=== PATIENT | female | born 1985 | race Caucasian/White ===

== ENCOUNTER → 2021-03-17 | Outpatient (CLI) | payer BC ==
--- NOTE | 2021-03-17 18:28 | XR ---
EXAMINATION TYPE: XR chest 2V DATE OF EXAM: 03/17/2021 COMPARISON: NONE HISTORY: Positive TB test TECHNIQUE: 2 views FINDINGS: Heart and mediastinum are normal. Lungs are clear. Diaphragm is normal. Bony thorax appears normal. IMPRESSION: Normal chest.
== END | disposition home or self-care (01) ==
LOC: RADXRMAIN 17:59
PROVIDERS: ATTEND Emergency Medicine
DX: R76.11 Nonspecific reaction to tuberculin skin test without active tuberculosis (principal)
CPT/HCPCS: 71046